=== PATIENT | female | born 1980 | race Caucasian/White ===

== ENCOUNTER 2018-07-12 13:21 | Emergency (ER) | payer MEDICAID ==
[~2018-07-12] VITALS: Ht 167.6 cm; Wt 73.0 kg
[2018-07-12] MEDS ORDERED: ASPI-964 PO (13:29)
[2018-07-12] MEDS ORDERED: ONDA4TAB11 PO (13:31)
[2018-07-12] MEDS ORDERED: NALO4SPR NS (13:31)
[2018-07-12] MEDS ORDERED: HYDR2TAB4 PO (13:31)
[2018-07-12] MEDS ORDERED: METH-612 PO (13:31)
[2018-07-12] MEDS ORDERED: PANT40TA4 PO (13:31)
[2018-07-12] MEDS ORDERED: NAPR-681 PO (13:31)
[2018-07-12] MEDS ORDERED: VISCOUS LIDOCAINE 2% 15 ML UDC MM STA (16:05)
[2018-07-12] MEDS ORDERED: MAGNESIUM/ALUMINUM HYDROXIDE/SIMETHICONE 30ML UDC PO ONE (16:15)
[2018-07-12] MEDS ORDERED: SODIUM CHLORIDE 0.9% 1,000 ML IV ONE (17:15)
[2018-07-12] MEDS ORDERED: METOCLOPRAMIDE HCL 10MG/2ML VIAL IV ONE (17:15)
[2018-07-12 19:04] VITALS: BP 116/78
== END 2018-07-12 19:05 | disposition home or self-care (01) ==
LOC: ER 13:31
DX: K29.70 Gastritis, unspecified, without bleeding (principal); Z79.82 Long term (current) use of aspirin
CPT/HCPCS: 81025; 96361; 96374; 99283; J2765; J7030

== ENCOUNTER 2018-08-05 15:15 | Emergency (ER) | payer MEDICAID ==
[~2018-08-05] VITALS: Ht 165.1 cm; Wt 71.0 kg
[~2018-08-05 15:15] MED LIST: ASPI-964 PO; HYDR2TAB4 PO; METH-612 PO; NALO4SPR NS; NAPR-681 PO; ONDA4TAB11 PO; PANT40TA4 PO
[2018-08-05 18:18] VITALS: BP 119/77
== END 2018-08-05 22:36 | disposition left against medical advice (07) ==
LOC: ER 15:15
DX: M25.551 Pain in right hip (principal); Z53.21 Procedure and treatment not carried out due to patient leaving prior to being seen by health care provider